=== PATIENT | male | born 1955 | race Caucasian/White ===

== ENCOUNTER → 2023-10-09 09:56 | Outpatient (REF) | payer MEDICARE, OTHER, SELFPAY | LOC: RAD 09:56 | PROVIDERS: ATTENDING PHYSICIAN Internal Medicine; REFERRING PHYSICIAN Orthopaedic Surgery | DX: S72.92XA Unspecified fracture of left femur, initial encounter for closed fracture (principal); Z13.820 Encounter for screening for osteoporosis; Z78.0 Asymptomatic menopausal state | CPT/HCPCS: 77080 ==

== ENCOUNTER → 2024-07-11 12:34 | Outpatient (REF) | payer MEDICARE, SELFPAY | LOC: RAD 12:34 | DX: T18.2XXA Foreign body in stomach, initial encounter (principal) | CPT/HCPCS: 71046; 74018 ==